=== PATIENT | female | born 1975 ===

== ENCOUNTER 2016-06-23 14:21 | Emergency (ER) | payer BC ==
[2016-06-23 14:44] VITALS: RESP 20
[2016-06-23] MEDS ORDERED: Sodium Chloride 0.9% 1,000 ML IV STA (14:55)
--- NOTE | 2016-06-23 14:57 | ED PDOC ---
HPI: Abdomen Time Seen by Provider: 06/23/16 14:55 Chief Complaint (Nursing): Abdominal Pain Chief Complaint (Provider): dysuria History Per: Patient (41 Y/O FEMALE HERE FOR EVALUATION OF DYSURIA ON AND OFF X 2 WEEKS. PATIENT STATES SHE WAS TREATED FOR UTI WITH CIPRO IN DR 2 WEEKS EARLIER AND NOTED IMPROVEMENT OF SYMPTOMS. STATES SYMPTOMS RETURNED AFTER COMPLETING ANTIBIOTICS. DENIES ANY NEW SEXUAL PARTNERS. DENIES ANY VAGINAL DISCHARGE. NOTES RIGHT SIDED FLANK PAIN WELL WORSE WITH MOVEMENT. ) Past Medical History Reviewed: Historical Data, Nursing Documentation, Vital Signs Vital Signs: Last Vital Signs Temp 98.9 F 06/23/16 14:41 Pulse 105 H 06/23/16 14:41 Resp 20 06/23/16 14:41 BP 150/82 06/23/16 14:41 Pulse Ox 99 06/23/16 18:43 - Family History Family History: States: Hypertension - Home Medications Home Medications: Ambulatory Orders Medication Instructions Recorded Naproxen 375 mg PO Q8 PRN #21 tab 03/21/14 Ciprofloxacin/Ciprofloxa HCl 500 mg PO BID #20 tab 12/01/14 [Ciprofloxacin] Phenazopyridine Hydrochlorid2 200 mg PO TID PRN #10 tab 12/01/14 [Pyridium] traMADol [Ultram] 50 mg PO Q6H PRN #10 tab 05/07/16 - Allergies Allergies/Adverse Reactions: Allergies Allergy/AdvReac Type Severity Reaction Status Date / Time No Known Allergies Allergy Verified 05/07/16 11:00 Review of Systems ROS Statement: Except As Marked, All Systems Reviewed And Found Negative Physical Exam - Reviewed Nursing Documentation Reviewed: Yes Vital Signs Reviewed: Yes - Physical Exam Appears: Positive for: Well, Non-toxic, No Acute Distress Head Exam: Positive for: ATRAUMATIC, NORMAL INSPECTION, NORMOCEPHALIC Skin: Positive for: Normal Color, Warm, DRY Eye Exam: Positive for: EOMI, Normal appearance, PERRL ENT: Positive for: Normal ENT Inspection Neck: Positive for: Normal, Painless ROM Cardiovascular/Chest: Positive for: Regular Rate, Rhythm Respiratory: Positive for: CNT, Normal Breath Sounds Gastrointestinal/Abdominal: Positive for: Normal Exam, Bowel Sounds, Soft Back: Positive for: Normal Inspection Extremity: Positive for: Normal ROM Neurologic/Psych: Positive for: Alert, Oriented - Laboratory Results Result Diagrams: 06/23/16 15:38 06/23/16 16:00 - ECG O2 Sat by Pulse Oximetry: 99 - Progress ED Course And Treament: CT ABD/PELVIS: Probable 2.5 centimeter right ovarian cyst.. recommend further evaluation with ultrasound. TRANSVAGINAL US: flow bilateral ovaries; right ovarian cyst noted; fibroids Disposition - Clinical Impression Clinical Impression: Ovarian cyst, Dysuria - Patient ED Disposition Is Patient to be Admitted: No - Disposition [facility] Disposition: Routine/Home Disposition Time: 20:41 Condition: FAIR Instructions: Ovarian Cyst (ED) Forms: [facility] ED School/Work Excuse Print Language: DANISH
[2016-06-23 15:57] LABS: RBC URINE 8 /hpf (0-3); URINE BACTERIA OCC (<OCC); URINE BILIRUBIN NEGATIVE (NEGATIVE); URINE BLOOD MODERATE (NEGATIVE); URINE COLOR YELLOW (YELLOW); URINE GLUCOSE (UA) NEG (Normal); URINE KETONE NEGATIVE (NEGATIVE); URINE LEUKOCYTE ESTERASE NEG Leu/uL (Negative); URINE PROTEIN 30 mg/dL (NEGATIVE); URINE UROBILINOGEN 0.2-1.0 mg/dL (0.2-1.0); WBC URINE 2 /hpf (0-5)
[2016-06-23 16:26] LABS: BASO % 0.4 % (0.0-2.0); EOS % 0.2 % (0.0-4.0); LYMPH # 2.7 K/uL (1.0-4.3); LYMPH % 35.4 % (20.0-40.0); MEAN CELL VOLUME 87.2 fl (81.0-99.0); MEAN CORPUSCULAR HEMOGLOBIN 29.4 pg (27.0-31.0); MEAN CORPUSCULAR HGB CONC 33.7 g/dL (33.0-37.0); MEAN PLATELET VOLUME 10.7 fl (7.2-11.7); MONO # 0.5 K/uL (0.0-0.8); MONO % 6.3 % (0.0-10.0); NEUT # 4.3 K/uL (1.8-7.0); NEUT % 57.7 % (50.0-75.0); NRBC % 0.3 % (0.0-0.0); RED CELL DISTRIBUTION WIDTH 13.3 % (11.5-14.5); WHITE BLOOD COUNT 7.5 K/uL (4.8-10.8)
[2016-06-23 17:42] LABS: ALB/GLOB RATIO 1.3 (1.0-2.1); ALKALINE PHOSPHATASE 54 U/L (38-126); ALT/SGPT 23 U/L (9-52); AST/SGOT 21 U/L (14-36); BILIRUBIN,TOTAL 0.3 mg/dl (0.2-1.3); BLOOD UREA NITROGEN 10 mg/dl (7-17); CALCIUM 9.5 mg/dL (8.4-10.2); CARBON DIOXIDE 27 mmol/L (22-30); CHLORIDE 103 mmol/L (98-107); GFR AFRICAN-AMERICAN > 60; GLUCOSE,RANDOM 92 mg/dL (65-105); POTASSIUM 3.8 MMOL/L (3.6-5.0); SODIUM 141 mmol/l (132-148); TOTAL PROTEIN 7.2 G/DL (6.3-8.2)
--- NOTE | 2016-06-23 18:38 | CT ---
PROCEDURE: CT Abdomen and Pelvis without intravenous contrast HISTORY: flank pain COMPARISON: 12/01/2014. TECHNIQUE: Technique. Contrast Dose: Radiation dose: Total exam DLP = mGy-cm. FINDINGS: LOWER THORAX: Unremarkable. LIVER: Unremarkable. No gross lesion or ductal dilatation. GALLBLADDER AND BILE DUCTS: Unremarkable. PANCREAS: Unremarkable. No gross lesion or ductal dilatation. SPLEEN: Unremarkable. ADRENALS: Unremarkable. No mass. KIDNEYS AND URETERS: Unremarkable. No hydronephrosis. No solid mass. VASCULATURE: Unremarkable. No aortic aneurysm. BOWEL: Unremarkable. No obstruction. No gross mural thickening. APPENDIX: Unremarkable. Normal appendix. PERITONEUM: Unremarkable. No free fluid. No free air. LYMPH NODES: Unremarkable. No enlarged lymph nodes. BLADDER: Unremarkable. REPRODUCTIVE: Probable 2.5 centimeter right ovarian cyst.. BONES: No acute fracture. OTHER FINDINGS: None. IMPRESSION: Probable 2.5 centimeter right ovarian cyst.. recommend further evaluation with ultrasound.
[2016-06-23 21:31] VITALS: BP 128/78; PULSE 78; TEMP 97.8; O2SAT 98
--- NOTE | 2016-06-24 10:21 | US ---
HISTORY: OVARIAN CYST. Menstrual status: Regular cycles. LMP 06/12/2016. COMPARISON: 05/29/2012. Pelvic ultrasound TECHNIQUE: The study is only now presented for interpretation. For technical reasons the study was not available prior to this time for review and interpretation by a radiologist. FINDINGS: UTERUS: Measures 9.5 x 4.1 x 6.1 cm. Normal in size and appearance. 1. Posterior fibroid 2 x 2.1 cm. 2. Small posterior inferior fibroid 0.8 x 1.1 cm. ENDOMETRIUM: Measures 3.4 mm in diameter. No ultrasound findings to suggest gestational sac, fluid, debris, mass or polyp or other pathologic process within the endometrium. CERVIX: No cervical abnormality identified. RIGHT OVARY: Measures 2 x 3.7 cm. No solid mass. Normal flow. Simple cyst 1.2 by 3.0 I 1.9 cm. Multiple subcentimeter follicles. LEFT OVARY: Measures 1.7 x 2.1 x 2.7 cm. No solid mass. Normal flow. FREE FLUID: No significant free fluid noted. OTHER FINDINGS: None. IMPRESSION: Simple cyst right adnexa. 2 small uterine fibroids at least 1 of which was seen on the prior study 05/29/2012. Unremarkable endometrial echo complex. Concordant results (preliminary interpretation) provided by [employer]. Procedure Completed: 20:16. Preliminary ([facility]) Report: Dictated and Authenticated: 21:14. Final Interpretation: 10:18.June 24, 2016.
== END 2016-06-23 21:31 | disposition home or self-care (01) ==
LOC: H.ER 14:21
DX: R30.0 Dysuria (principal); N83.209 Unspecified ovarian cyst, unspecified side; R10.9 Unspecified abdominal pain
CPT/HCPCS: 74176; 76830; 80053; 81003; 81025; 85025; 87086; 87491; 87591; 99282; J7040